=== PATIENT | female | born 1960 | race Asian ===

== ENCOUNTER 2020-05-02 16:07 | Emergency (ER) | payer OTHER ==
[~2020-05-02] VITALS: Ht 167.6 cm; Wt 81.6 kg
[2020-05-02 16:22] VITALS: TEMP 97.5
[2020-05-02 19:06] LABS: PLATELET COUNT 314 K/uL (152-353)
[2020-05-02 19:45] VITALS: BP 128/74
== END 2020-05-02 19:45 | disposition home or self-care (01) ==
LOC: ED 16:07
PROVIDERS: Hospitalist
DX: K64.4 Residual hemorrhoidal skin tags (principal)
CPT/HCPCS: 36415; 80048; 85027; 85610; 85730; 96372; 99283; J1885; J2270; J2405

== ENCOUNTER 2020-09-05 08:23 | Outpatient (CLI) | payer OTHER | END 2020-09-05 22:49 | disposition home or self-care (01) | LOC: MAMMO 08:23 | PROVIDERS: ATTEND Internal Medicine | DX: Z12.31 Encounter for screening mammogram for malignant neoplasm of breast (principal) ==

== ENCOUNTER 2021-11-14 09:09 | Emergency (ER) | payer BC ==
[~2021-11-14] VITALS: Ht 167.6 cm; Wt 81.6 kg
[2021-11-14 09:19] VITALS: BP 136/66; TEMP 98
== END 2021-11-14 10:38 | disposition home or self-care (01) ==
LOC: ED 09:09
PROC: 2W3MX1Z Immobilization of Left Lower Extremity using Splint (ICD-10-PCS; principal; 2021-11-14)
DX: S83.8X2A Sprain of other specified parts of left knee, initial encounter (principal); W18.09XA Striking against other object with subsequent fall, initial encounter; Y93.K1 Activity, walking an animal; Y92.89 Other specified places as the place of occurrence of the external cause
CPT/HCPCS: 96372; 99283; J1885